=== PATIENT | female | born 1960 | race Caucasian/White ===

== ENCOUNTER → 2021-05-17 11:10 | Outpatient (CLI) | payer OTHER, SELFPAY ==
[2021-05-17 14:09] LABS: COVID19 -Nasal RAPID Negative (Negative)
== END ==
PROVIDERS: PCP Student in an Organized Health Care Education/Training Program; Visit Provider Physician Assistant
DX: Z01.812 Encounter for preprocedural laboratory examination (principal); Z20.822 Contact with and (suspected) exposure to COVID-19
CPT/HCPCS: 87635

== ENCOUNTER 2021-05-18 08:19 | Day surgery (SDC) | payer OTHER, SELFPAY ==
[2021-05-18 08:45] VITALS: BP 136/79; PULSE 85; RESP 18; TEMP 36.6; O2SAT 100; BMI 29.4
[2021-05-18] MEDS: SODIUM CHLORIDE 0.9% 1,000 ML 125 ML IV (08:55)
--- NOTE | 2021-05-18 09:40 | PM.HP.1 ---
History of Present Illness History of Present Illness Date Patient Seen: 05/18/21 Time Patient Seen: 09:41 Chief complaint: DX COLONOSCOPY W/BX Narrative: Occasional hemorrhoidal bleeding. Positive Cologuard. Patient History Comment: Hysterectomy Family & Social History Social History: household members spouse Tobacco & Substance use: Smoking Status Former smoker alcohol intake former Substance Use Type does not use Comment: No fam hx crc Meds Home Medications and Allergies Home Medications Medication Instructions Recorded Confirmed Type No Known Home Medications 05/18/21 05/18/21 History Allergies Allergy/AdvReac Type Severity Reaction Status Date / Time codeine Allergy Intermediate ITCHING Verified 05/18/21 08:40 oxycodone [From Percocet] Allergy Intermediate ITCHING Verified 05/18/21 08:41 hydrocodone [From Vicodin] AdvReac Intermediate ITCHING Verified 05/18/21 08:42 Review of Systems Review of Systems ROS: Yes All systems reviewed with the patient and are negative except as otherwise documented Exam Vital Signs (past 8 hours): - 05/18/21 08:45 Temperature 98 F Pulse Rate 85 Respiratory Rate 18 Blood Pressure 136/79 Pulse Oximetry 100 Oxygen Delivery Method Room Air Const General: cooperative and comfortable Orientation: alert HENIL Head: normocephalic Ears: external ears normal Nose: external nose normal Face and sinus: normal facial exam Mouth: oral mucosae normal Eyes General: appearance normal, both eyes and all related structures Neck Neck: normal visual inspection Chest Chest: normal inspection of the chest Resp Effort & Inspection: normal respiratory effort Auscultation: clear to auscultation bilaterally Cardio Rate: regular rate Rhythm: regular rhythm Heart Sounds: no murmurs GI Inspection: normal to inspection Palpation: soft and No tender Auscultation: normal bowel sounds Skin General: no rashes or lesions noted and No jaundice Neuro General: patient alert and moves all extremities Cognition: normal cognition Speech: speech normal Extrem General: no pedal edema Psych Appearance: grossly normal Assessment & Plan Assessment & Plan narrative: Positive Cologuard and rectal bleeding. Colonoscopy is planned.
--- NOTE | 2021-05-18 09:43 | PM.PREOP ---
Pre-operative Note COVID-19 COVID-19 status: Negative Result date/Date tested (Pos, Neg/Pending): 05/17/21 Interval Note History & Physical reviewed/Exam performed by Physician: Yes Changes to H&P: No ASA Class (for procedural sedation): I
[2021-05-18] MEDS: MIDAZOLAM 5 MG/5 ML VIAL IV (10:03)
[2021-05-18] MEDS: MEPERIDINE 50 MG/ML INJ 100 MG IV (10:04)
--- NOTE | 2021-05-18 10:21 | PM.OP.ENDO ---
Operative Date/Time/Diagnoses Date of procedure: 05/18/21 Time of procedure: 10:21 Pre-op diagnosis: Positive Cologuard intermittent rectal bleeding Post-op diagnosis: same Procedure & Clinicians Study performed: Colonoscopy Same procedure as scheduled: Yes Indications: Positive Cologuard intermittent rectal bleeding Surgeon: Toro Gray Procedure Notes SCOAP/Timeout: Done Procedure in detail: After the risks and benefits were explained, written and verbal informed consent was obtained. The patient was brought into the procedure room and placed into the left lateral decubitus position. Conscious sedation medication was applied as per nursing documentation. Digital rectal examination was accomplished. The scope was introduced into the patient and advanced under direct visualization to the cecum as identified by the appendiceal orifice and ileocecal valve. The scope was slowly withdrawn to carefully examine the mucosa for any defects or lesions. Comprehensive imaging was accomplished throughout the rectum including the dentate line. The colon was decompressed, the scope was then removed from the patient who tolerated the procedure well. Versed 5mg Demerol 75mg Bowel prep excellent Scope withdrawal time: 10 minutes Sedation minutes: 25 Specimen(s): none sent Complications: none Impression: No significant polyps mass lesions or inflammatory features identified throughout. Mild internal hemorrhoids were noted on direct views through the anorectum. The terminal ileum was interrogated and appeared visually normal. Endoscopic diagnosis 1. Internal hemorrhoids 2. Otherwise visually unremarkable colonoscopy to cecum and terminal ileum Post-procedure Recommendations: Colonscopy in 10 years Plan for aftercare: 1. Follow up in primary care 2. Repeat colonoscopy 10 years time sooner should symptoms warrant an earlier exam Disposition: PACU
[2021-05-18 10:23] VITALS: BP 120/65; PULSE 97; RESP 16; RESP 17; TEMP 36.4; O2SAT 98; O2SAT 99
[2021-05-18 10:28] VITALS: BP 120/65; PULSE 91; RESP 11; O2SAT 100
[2021-05-18 10:43] VITALS: BP 116/60; PULSE 78; RESP 16; O2SAT 100
[2021-05-18 10:49] VITALS: BP 104/69; PULSE 71; RESP 16; TEMP 36.3; O2SAT 98
== END 2021-05-18 11:09 | disposition home or self-care (01) ==
PROVIDERS: PCP Student in an Organized Health Care Education/Training Program; Referring Provider Internal Medicine Gastroenterology; Visit Provider Internal Medicine Gastroenterology
PROC: 0DJD8ZZ Inspection of Lower Intestinal Tract, Via Natural or Artificial Opening Endoscopic (ICD-10-PCS; CPT 45378; principal; 2021-05-18 09:30)
DX: R19.5 Other fecal abnormalities (principal); K62.5 Hemorrhage of anus and rectum; K64.8 Other hemorrhoids
CPT/HCPCS: 45378; J2175; J2250

== ENCOUNTER → 2022-02-11 11:10 | Outpatient (CLI) | payer OTHER, SELFPAY ==
--- NOTE | 2022-02-11 | DI.MG.S_ITS ---
BILATERAL DIGITAL SCREENING MAMMOGRAM 3D/2D WITH CAD: 02/11/2022 CLINICAL: Routine screening. Family history of breast cancer. Comparison is made to exams dated: 08/14/2020 mammogram, 12/17/2018 mammogram, and 06/02/2016 mammogram - outside facility. The tissue of both breasts is heterogeneously dense. This may lower the sensitivity of mammography. Current study was also evaluated with a Computer Aided Detection (CAD) system. No significant masses, calcifications, or other findings are seen in either breast. There has been no significant interval change. IMPRESSION: NEGATIVE There is no mammographic evidence of malignancy. A 1 year screening mammogram is recommended. This exam was interpreted at Station ID: [id number]. NOTE: For mammograms, a report in lay terms will be sent to the patient. Approximately 15% of breast malignancies will not be visualized mammographically. In the management of a palpable breast mass, a negative mammogram must not discourage biopsy of a clinically suspicious lesion. Electronically Signed By: Shantanu cuevas/alok:02/11/2022 16:31:35 letter sent: Normal Exam ACR BI-RADS Category 1: Negative 3341F
== END ==
PROVIDERS: PCP Physician Assistant; Referring Provider Physician Assistant; Visit Provider Physician Assistant
DX: Z12.31 Encounter for screening mammogram for malignant neoplasm of breast (principal); Z80.3 Family history of malignant neoplasm of breast
CPT/HCPCS: 77063; 77067

== ENCOUNTER → 2022-07-14 09:05 | Outpatient (CLI) | payer OTHER, SELFPAY ==
--- NOTE | 2022-07-14 | DI.MRI.S_ITS ---
PROCEDURE: MR KNEE RT WO CON INDICATIONS: RIGHT KNEE PAIN TECHNIQUE: Noncontrast sagittal PD fast spin echo and T2 fast spin echo with fat saturation, sagittal 3-D FLASH with fat saturation; coronal T1 spin echo and PD fast spin echo with fat saturation, and axial PD fast spin echo with fat saturation through the knee. COMPARISON: None. FINDINGS: Image quality: Partially degraded by motion artifact. Menisci: There is linear horizontal high signal intensity traversing the inner, middle, and peripheral thirds of the medial meniscal body, anterior horn, and posterior horn, demonstrating superior and inferior articular surface extension, indicating horizontal tearing. There is truncation of the free edge of the posterior horn medial meniscus, indicating radial tearing. Amorphous high signal intensity within the posterior horn medial meniscus involving the peripheral 3rd is present, demonstrating superior and inferior articular surface extension, indicating degenerative tearing. Linear horizontal high signal intensity involves the middle and peripheral thirds of the anterior horn lateral meniscus, demonstrating superior articular surface extension, indicating horizontal tearing. Cruciate ligaments: The anterior and posterior cruciate ligaments appear intact. Medial structures: The medial collateral ligament appears intact. Visualized portions of the pes anserinus tendons appear normal. No abnormal bursal fluid. Lateral structures: The lateral collateral ligament, long and short heads of the biceps femoris tendon appear intact. The popliteus tendon appears normal. Iliotibial band appears normal. Anterior structures: The quadriceps and patellar tendons appear intact. Mild T2 signal elevation within the quadriceps and patellar tendons at the patellar insertion sites. Patellar alignment is normal. No femoral trochlear dysplasia or ventral trochlear prominence. No edema in the infrapatellar fat pad. Bones and cartilage: No bone marrow contusions or fractures. Mild subchondral degenerative marrow edema within the medial and lateral patellar facets. There is mild tricompartmental periarticular osteophyte formation. Mild articular cartilage loss diffusely overlies the weight-bearing aspects of the medial femoral condyle and medial tibial plateau. Moderate articular cartilage loss overlies the medial patellar facet. Mild articular cartilage loss overlies the lateral patellar facet. Joint space: There is a small knee joint effusion and a trace Carlin's cyst. Normal appearing synovial plicae are incidentally noted. IMPRESSION: 1. Tricompartmental osteoarthritis with associated articular cartilage loss. 2. Medial and lateral meniscal tearing. 3. Knee joint effusion and Carlin's cyst. 4. Mild quadriceps and patellar tendinopathy. Dictated by: Darrel Cullen M.D. on 07/14/2022 at 11:05 Transcribed by: CARYN on 07/14/2022 at 11:08 Approved by: Darrel Cullen M.D. on 07/14/2022 at 11:29
== END ==
PROVIDERS: PCP Physician Assistant; Referring Provider Physician Assistant; Visit Provider Physician Assistant
DX: M25.561 Pain in right knee (principal); M17.11 Unilateral primary osteoarthritis, right knee; S83.241A Other tear of medial meniscus, current injury, right knee, initial encounter; S83.281A Other tear of lateral meniscus, current injury, right knee, initial encounter; M25.461 Effusion, right knee; M71.21 Synovial cyst of popliteal space [Baker], right knee
CPT/HCPCS: 73721

== ENCOUNTER 2023-10-11 20:43 | Emergency (ER) | payer OTHER, SELFPAY ==
[2023-10-11 20:49] VITALS: BP 142/72; PULSE 94; RESP 18; TEMP 36.4; O2SAT 94; BMI 30.5
--- NOTE | 2023-10-11 21:11 | ED.HEATRA ---
HPI - Head Injury General Chief complaint: Head Injury Stated complaint: head wound s/p fall Time Seen by Provider: 10/11/23 20:49 Source: patient Mode of arrival: Ambulatory History of Present Illness HPI Narrative: 62-year-old female with no reported past medical history presents for accidental head injury that occurred approximately 4 hours prior to arrival. Patient was in the parking lot with her grandson when she tripped and fell, striking her right face against a car. She denies loss of consciousness, denies use of blood thinners. She states that she expected some swelling, but it seemed to get worse throughout the evening and her became concerned, prompting her to be evaluated in the emergency department. Patient denies nausea, vomiting, confusion, change in mental status. She is not up-to-date on her tetanus vaccination, she declines an update today. Related Data Home Medications Medication Instructions Recorded Confirmed No Known Home Medications 05/18/21 05/18/21 Allergies Allergy/AdvReac Type Severity Reaction Status Date / Time codeine Allergy Intermediate ITCHING Verified 05/18/21 08:40 oxycodone [From Percocet] Allergy Intermediate ITCHING Verified 05/18/21 08:41 hydrocodone [From Vicodin] AdvReac Intermediate ITCHING Verified 05/18/21 08:42 Review of Systems Review of Systems Narrative: Negative except as noted above Patient History Social History household members: spouse Smoking Status: Former smoker alcohol intake: former Smoking Status: Former smoker Substance Use Type: does not use Exam Initial Vital Signs Initial Vital Signs: Vital Signs Temperature 97.6 F 10/11/23 20:49 Pulse Rate 94 H 10/11/23 20:49 Respiratory Rate 18 10/11/23 20:49 Blood Pressure 142/72 H 10/11/23 20:49 Pulse Oximetry 94 10/11/23 20:49 Oxygen Delivery Method Room Air 10/11/23 20:49 Const: Awake, alert, no acute distress, nontoxic appearing Eyes: PERRL, EOMI, conjunctiva normal, no raccoon eyes ENT: Atraumatic, dentition normal, mucous membranes moist, no celeste sign Cardiac: regular rate, regular rhythm RESP: unlabored, clear bilaterally, no wheezing GI: Atraumatic, soft, nontender, nondistended, no rebound, no guarding MSK: Atraumatic, full range of motion, pulses equal, no midline neck tenderness Skin: Warm, Dry, superficial abrasion lateral right eyebrow, hematoma right eyebrow Neuro: AO x3, CN II-XII grossly intact, moves all extremities Psych: affect normal, mood normal, not suicidal, not homicidal Scores [place] CT Head Rule Age <16 years old: No Patient on blood thinners: No Seizure after injury: No Exclusion: Patient NOT Excluded, Proceed to next steps GCS < 15 at 2 hr post trauma: No Suspected open or depressed skull fracture: No Any sign of basilar skull fracture (hemotympanum, raccoon eyes, Celeste's sign, CSF wing-/rhinorrhea): No Two or more episodes of vomiting: No Age greater or equal to 65 years: No Retrograde amnesia to the event greater or equal to 30 min: No Dangerous Mechanism (pedestrian vs. mv, occupant ejected from mv, fall from >3 ft or > 5 stairs): No Recommendation: CT unnecessary Course Course Course Narrative: Right-sided periorbital hematoma after head injury. Patient is negative for both Trinid[place] and nexus head CT rules. No indication for CT imaging at this time. Patient is overall well-appearing and other than the hematoma has no obvious injuries. She is neurologically intact, GCS 15. She states she is likely not up-to-date on tetanus, but declines update at this time. Patient counseled to take Tylenol and Motrin as needed for pain and to apply ice frequently for swelling. Routine PCP follow up advised. ED return precautions discussed at bedside. Patient expressed understanding of the plan and is in agreement at this time. All questions answered at the time of discharge. Vital Signs Vital signs: Vital Signs - 8 hr 10/11/23 20:49 10/11/23 21:35 Temperature 97.6 F 98.7 F Pulse Rate 94 H 80 Respiratory Rate 18 18 Blood Pressure 142/72 H 144/72 H Pulse Oximetry 94 95 Oxygen Delivery Method Room Air Room Air Discharge Plan Departure Patient Disposition: Home Clinical Impression: Closed head injury Qualifiers: Encounter type: initial encounter Qualified Code(s): S09.90XA - Unspecified injury of head, initial encounter Contusion of forehead Qualifiers: Encounter type: initial encounter Qualified Code(s): S00.83XA - Contusion of other part of head, initial encounter Instructions: DI for Hematoma (Bruise), DI for Closed Head Injury Activity Restrictions/Additional Instructions: You were seen today for head injury with right eyebrow swelling. Due to your age, lack of use of blood thinners, normal mental status, and no vomiting a CT scan is not indicated at this time. I recommend lots and lots of ice for swelling as well as Tylenol and Motrin as needed for pain. Follow up as needed with your primary care doctor Prescriptions: No Action No Known Home Medications Referrals: Amie Marte PA-C [Primary Care Provider] - Stand Alone Forms: Patient Portal/API
[2023-10-11 21:35] VITALS: BP 144/72; PULSE 80; RESP 18; TEMP 37.1; O2SAT 95
== END 2023-10-11 21:35 | disposition home or self-care (01) ==
PROVIDERS: Emergency Provider Emergency Medicine; PCP Physician Assistant
DX: S09.90XA Unspecified injury of head, initial encounter (principal); S00.83XA Contusion of other part of head, initial encounter; W01.198A Fall on same level from slipping, tripping and stumbling with subsequent striking against other object, initial encounter
CPT/HCPCS: 99281